=== PATIENT | male | born 1960 | race Caucasian/White ===

== ENCOUNTER → 2019-04-02 | Outpatient (CLI) | payer BC ==
--- NOTE | 2019-04-02 09:26 | US ---
EXAMINATION TYPE: US prostate transrectal DATE OF EXAM: 04/02/2019 COMPARISON: NONE CLINICAL HISTORY: R92.2 Elevated prostate specific antigen. Patient states sometimes going to the bat hroom multiple times during the night. Patient states having a leakage problem. This examination was performed using the transrectal probe. EXAM MEASUREMENTS: Gland Size: 5.5 x 5.2 x 3.3 cm Volume: 49.2 Predicted PSA: 5.9 Actual PSA (if available):4.1 Peripheral zone appears heterogenous. Possible right hypoechoic lesion, nonvascular = 0.7 x 0.6 x 0. 6 cm. Seminal vesicles are within normal limits on initial images. Prostate gland is enlarged in size and h eterogeneous in appearance with central calcifications. No suspicious hypoechoic central nodules. The re is 7 mm more central hypoechoic area immediately adjacent to the urethra with transitional zone t hat should be followed at minimum. IMPRESSION: Enlarged prostate gland. No peripheral zone nodules. There is central 7 mm transitional zone nodule noted. Predicted PSA = volume x 0.12 ng/ml Calculated Volume = 0.5236 x L x W x H
== END | disposition home or self-care (01) ==
LOC: RADUSMAIN 07:24
PROVIDERS: ATTEND Family Medicine
DX: N40.0 Benign prostatic hyperplasia without lower urinary tract symptoms (principal)
CPT/HCPCS: 76872

== ENCOUNTER 2020-05-04 11:24 | Emergency (ER) | payer BC ==
[2020-05-04 11:32] VITALS: BP 145/90; PULSE 82; RESP 18; TEMP 97.7
--- NOTE | 2020-05-04 12:32 | ED ---
Eye Problem HPI <Aleks Abdalla - Last Filed: 05/04/20 12:53> - General Source: patient, RN notes reviewed, old records reviewed Mode of arrival: wheelchair Limitations: no limitations <Amber Cunha - Last Filed: 05/04/20 19:47> - General Chief complaint: Eye Problems Stated complaint: Eye issues Time Seen by Provider: 05/04/20 11:54 - History of Present Illness Initial comments: Patient is a 59-year-old male who presents the emergency department today with complaints of left eye floaters and blurred vision. Patient reports that he hit his head yesterday while at work. He reports that he had no loss of consciousness. He is not on blood thinners. He states that he noticed a few hours later he started to have some floaters and blurred vision from the left eye. He states that from his peripheral vision he sees a dark flap. Patient reports that he has family history of detached retina. She does wear glasses. (Amber Cunha) - Related Data Home Medications Medication Instructions Recorded Confirmed Bisoprolol Fumarate [Zebeta] 10 mg PO DAILY 05/04/20 05/04/20 Cholecalciferol [Vitamin D3 (25 1,000 unit PO DAILY 05/04/20 05/04/20 Mcg = 1000 Iu)] metFORMIN HCL 1,000 mg PO BID 05/04/20 05/04/20 sitaGLIPtin [Januvia] 100 mg PO DAILY 05/04/20 05/04/20 Review of Systems ROS Other: All systems not noted in ROS Statement are negative. <RmAleks - Last Filed: 05/04/20 12:53> ROS Other: All systems not noted in ROS Statement are negative. <Amber Cunha - Last Filed: 05/04/20 19:47> ROS Statement: Those systems with pertinent positive or pertinent negative responses have been documented in the HPI. Past Medical History Past Medical History: Diabetes Mellitus, Hyperlipidemia, Hypertension Additional Past Medical History / Comment(s): chronic back issues. History of Any Multi-Drug Resistant Organisms: None Reported Past Psychological History: No Psychological Hx Reported Smoking Status: Never smoker Past Alcohol Use History: None Reported Past Drug Use History: None Reported <Amber Cunha - Last Filed: 05/04/20 19:47> General Exam Limitations: no limitations General appearance: alert, in no apparent distress Head exam: Present: atraumatic, normocephalic, normal inspection Eye exam: Present: normal appearance, PERRL, EOMI, other (IOP 15 on R 14 on L. 20/20 bilateral vision. ). Absent: scleral icterus, conjunctival injection, periorbital swelling ENT exam: Present: normal exam, mucous membranes moist Neck exam: Present: normal inspection. Absent: tenderness, meningismus, lymphadenopathy Respiratory exam: Present: normal lung sounds bilaterally. Absent: respiratory distress, wheezes, rales, rhonchi, stridor Cardiovascular Exam: Present: regular rate, normal rhythm, normal heart sounds. Absent: systolic murmur, diastolic murmur, rubs, gallop, clicks GI/Abdominal exam: Present: soft, normal bowel sounds. Absent: distended, tenderness, guarding, rebound, rigid Extremities exam: Present: normal inspection, full ROM, normal capillary refill. Absent: tenderness, pedal edema, joint swelling, calf tenderness Back exam: Present: normal inspection Neurological exam: Present: alert, oriented X3, CN II-XII intact Psychiatric exam: Present: normal affect Skin exam: Present: warm, dry, intact, normal color. Absent: rash <Amber Cunha - Last Filed: 05/04/20 19:47> - General Exam Comments Initial Comments: 59-year-old male. Alert and oriented. (Amber Cunha) Course <Aleks Abdalla - Last Filed: 05/04/20 12:53> Vital Signs 05/04/20 11:27 Temperature 97.7 F Pulse Rate 82 Respiratory 18 Rate Blood Pressure 145/90 O2 Sat by Pulse 98 Oximetry - Reevaluation(s) Reevaluation #1: 05/04/20 12:53 PA supervision: I did discuss the case with Dr. Hooper he patient is suspected due to symptoms of flashes and floaters suddenly appearing in the left eye and some evidence on ultrasound possible dentition. Patient is to go directly to the [place] office where there is a retinal specialist there at this time. Remain nothing by mouth. (Aleks Abdalla) Medical Decision Making <Amber Cunha - Last Filed: 05/04/20 19:47> - Medical Decision Making 59 year old male presents with history of minor head injury yesterday and complains of left eye vision floaters and shadowing on peripheral vision afterward. Pt had US which shows concern for retinal detachment. Visual acuity intact. Pt case discussed with Dr. Hooper whom will have pt go directly to his office. Pt is agreeable to treatment plan. (Amber Cunha) Disposition <Aleks Abdalla - Last Filed: 05/04/20 12:53> Is patient prescribed a controlled substance at d/c from ED?: No Time of Disposition: 12:55 <Amber Cunha - Last Filed: 05/04/20 19:47> Clinical Impression: Retinal detachment Disposition: HOME SELF-CARE Condition: Good Additional Instructions: Patient advised to go directly to Dr. Hooper's office in [facility]. Return to the emergency department if any alarming signs or symptoms occur. Referrals: Jagdish Arango DO [Primary Care Provider] - 1-2 days Ruel Hooper MD [STAFF PHYSICIAN] - 1-2 days
== END 2020-05-04 13:09 | disposition home or self-care (01) ==
LOC: EC 11:24
DX: H33.22 Serous retinal detachment, left eye (principal); I10 Essential (primary) hypertension; E11.9 Type 2 diabetes mellitus without complications; Z79.84 Long term (current) use of oral hypoglycemic drugs; Z79.899 Other long term (current) drug therapy; W22.8XXA Striking against or struck by other objects, initial encounter; Y92.69 Other specified industrial and construction area as the place of occurrence of the external cause; Y99.0 Civilian activity done for income or pay
CPT/HCPCS: 99284

== ENCOUNTER 2021-10-20 08:30 | Day surgery (SDC) | payer BC ==
[2021-10-19 08:46] VITALS: BMI 32.1
[2021-10-20] MEDS ORDERED: LACTATED RINGERS 1,000 ML IV SCH (08:47)
[2021-10-20 08:51] VITALS: TEMP 97.1
[2021-10-20 09:00] LABS: Glucose,Whole Blood 107 mg/dL (75-99)
[2021-10-20] MEDS ORDERED: PROPOFOL 10 MG/ML 20 ML VIAL IV ONE (09:16)
--- NOTE | 2021-10-20 09:17 | P.GSHP ---
History of Present Illness H&P Date: 10/20/21 Chief Complaint: Screening colonoscopy Is a 60-year-old male presents today for screening colonoscopy. Patient denies a significant GI complaints. Past Medical History Past Medical History: Diabetes Mellitus, Hyperlipidemia, Hypertension Additional Past Medical History / Comment(s): chronic back issues. SEASONAL ALLERGIES. PROSTATE CANCER History of Any Multi-Drug Resistant Organisms: None Reported Past Surgical History: Prostate Surgery Additional Past Surgical History / Comment(s): PROSTATECTOMY Past Anesthesia/Blood Transfusion Reactions: No Reported Reaction Smoking Status: Former smoker - Past Family History Father Family Medical History: Cancer Medications and Allergies Home Medications Medication Instructions Recorded Confirmed Type Bisoprolol Fumarate [Zebeta] 10 mg PO DAILY 05/04/20 10/20/21 History Cholecalciferol [Vitamin D3 (25 1,000 unit PO DAILY 05/04/20 10/20/21 History Mcg = 1000 Iu)] metFORMIN HCL [Glucophage] 1,000 mg PO BID 05/04/20 10/20/21 History sitaGLIPtin [Januvia] 100 mg PO DAILY 05/04/20 10/20/21 History Allergies Allergy/AdvReac Type Severity Reaction Status Date / Time No Known Allergies Allergy Verified 10/20/21 08:47 Surgical - Exam Vital Signs Temp Pulse Resp BP Pulse Ox 97.1 F L 65 18 150/77 100 10/20/21 08:49 10/20/21 08:49 10/20/21 08:49 10/20/21 08:49 10/20/21 08:49 - General well developed, well nourished, no distress - Eyes PERRL - ENT normal pinna - Neck no masses - Respiratory normal expansion - Cardiovascular Rhythm: regular - Abdomen Abdomen: soft, non tender Results - Labs Abnormal Lab Results - Last 24 Hours (Table) 10/20/21 Range/Units 08:58 POC Glucose (mg/dL) 107 H (75-99) mg/dL Assessment and Plan Plan: We'll perform screening colonoscopy
--- NOTE | 2021-10-20 09:35 | P.OP ---
Date of Procedure: 10/20/21 Preoperative Diagnosis: Screening colonoscopy Postoperative Diagnosis: Normal colonoscopy Procedure(s) Performed: Colonoscopy Anesthesia: MAC Surgeon: Atif De Los Santos Pathology: none sent Condition: stable Disposition: PACU Description of Procedure: T PROCEDURE: The patient was placed on the endoscopy table in the lateral position. Digital rectal examination was performed which revealed no abnormalities. The prostate was symmetrical without nodules. Flexible colonoscope was then placed in the patient's anus and passed throughout the entire colon. The ileocecal valve was visualized. The cecum, ascending, transverse, descending and sigmoid colon were normal. The rectum was normal as well. There were no masses, polyps or diverticula noted in the entire colon. SUMMARY OF FINDINGS: Normal colonoscopy.
[2021-10-20 09:57] VITALS: BP 125/90; PULSE 67; RESP 18
== END 2021-10-20 10:07 | disposition home or self-care (01) ==
LOC: ORWHC2ENDO 08:30
PROVIDERS: ATTEND Surgery
DX: Z12.11 Encounter for screening for malignant neoplasm of colon (principal); E11.9 Type 2 diabetes mellitus without complications; E78.5 Hyperlipidemia, unspecified; I10 Essential (primary) hypertension; J30.2 Other seasonal allergic rhinitis; Z85.46 Personal history of malignant neoplasm of prostate; Z90.79 Acquired absence of other genital organ(s); Z87.891 Personal history of nicotine dependence; Z79.84 Long term (current) use of oral hypoglycemic drugs; Z80.9 Family history of malignant neoplasm, unspecified
CPT/HCPCS: J2704; G0121; 45378